=== PATIENT | male | born 1990 | race Caucasian/White ===

== ENCOUNTER 2022-12-15 03:15 | Emergency (ER) | payer BC, MEDICAID ==
[~2022-12-15] VITALS: Ht 172.7 cm; Wt 97.7 kg
[~2022-12-15 03:15] MED LIST: CYCL-1 PO; ONDA4TAB59 PO
[2022-12-15 04:10] VITALS: TEMP 98.8
[2022-12-15] MEDS ORDERED: ondansetron 4mg rapidly disintigrating tab PO STA (04:15)
[2022-12-15] MEDS ORDERED: normal saline 1000ML IV soln IVB ONE ×2 (06:20)
[2022-12-15] MEDS ORDERED: metoclopramide 5 mg/ml inj IV ONE (06:20)
[2022-12-15] MEDS ORDERED: diphenhydrAMINE 50 mg/ml inj IV ONE (06:20)
[2022-12-15 08:49] LABS: BASOPHILS % (AUTO) 0.1 % (0-1); EOSINOPHILS % (AUTO) 0.1 % (0-6); HEMATOCRIT 46.2 % (42.0-52.0); LYMPHOCYTES # (AUTO) 0.4 X10'3 (1.1-4.8); LYMPHOCYTES % (AUTO) 3.1 % (21-51); MEAN CORPUSCULAR HEMOGLOBIN 33.1 PG (27.0-31.0); MEAN CORPUSCULAR HGB CONC 34.7 g/dL (33.0-36.5); MEAN CORPUSCULAR VOLUME 95.3 FL (78-98); MEAN PLATELET VOLUME 8.2 FL (7.4-10.4); MONOCYTES # (AUTO) 0.6 X10'3 (0-0.9); MONOCYTES % (AUTO) 5.4 % (2-12); NEUTROPHILS # (AUTO) 10.5 X10'3 (1.8-7.7); NEUTROPHILS % (AUTO) 91.3 % (42-75); PLATELET COUNT 241 X10'3 (140-440); RED BLOOD COUNT 4.84 X10'6 (4.70-6.10); RED CELL DISTRIBUTION WIDTH 13.5 % (11.5-14.5); WHITE BLOOD COUNT 11.5 X10'3 (4.5-11.0)
[2022-12-15 08:53] LABS: BILIRUBIN,URINE MODERATE (Neg); CLARITY,URINE CLEAR (Clear); COLOR,URINE YELLOW (Yellow); GLUCOSE, URINE NEGATIVE (Neg); KETONES,URINE >=80 mg/dl (Neg); LEUKOCYTE ESTERASE ,URINE NEGATIVE (Neg); NITRITES, URINE POSITIVE (Neg); OCCULT BLOOD,URINE NEGATIVE (Neg); PROTEIN,URINE >=300 mg/dl (Neg)
[2022-12-15 08:59] LABS: ALANINE AMINOTRANSFERASE 116 U/L (12-78); ALBUMIN 4.3 G/DL (3.4-5.0); ALBUMIN/GLOBULIN RATIO 1.4 (1.1-1.5); ALKALINE PHOSPHATASE 83 IU/L (46-116); ANION GAP 14 (8-16); ASPARTATE AMINO TRANSFERASE 93 U/L (10-37); BILIRUBIN,TOTAL 2.5 MG/DL (0.1-1.0); BLOOD UREA NITROGEN 11 MG/DL (7-18); BUN/CREATININE RATIO 11.8 (10.0-20.0); CHLORIDE 102 MMOL/L (99-107); CREATININE 0.93 MG/DL (0.60-1.10); GLUCOSE 121 MG/DL (70-104); LIPASE < 50 U/L (73-393); POTASSIUM 3.1 MMOL/L (3.5-5.1); SODIUM 142 MMOL/L (135-145); TOTAL CARBON DIOXIDE 26.3 MMOL/L (24-32); TOTAL PROTEIN 7.3 G/DL (6.4-8.2); eCRCL 112 ML/MIN; eGFR > 90 ML/MIN
[2022-12-15 08:59] LABS: UA COLLECTION TYPE URINAL
[2022-12-15 09:00] LABS: BACTERIA,URINE FEW /HPF (Neg); MUCUS STRANDS MODERATE /LPF (Neg); RBC,URINE NONE SEEN /HPF (0-2); SQUAMOUS EPITHELIAL CELL,UR FEW /LPF (FEW)
[2022-12-15] MEDS ORDERED: ONDA4TAB12 PO (10:01)
[2022-12-15] MEDS ORDERED: CIPR-259 PO (10:01)
[2022-12-15 12:28] VITALS: BP 131/71; PULSE 113; RESP 18; O2SAT 96
[2022-12-15] MEDS ORDERED: chlordiazePOXIDE 25mg capsule PO ONE (13:20)
[2022-12-15] MEDS ORDERED: CHLO25CA10 PO (13:21)
[2022-12-16] MEDS ORDERED: CefTRIAXone 2gm/D5W 50ml BAG 50 ML IV ONE (08:00)
== END 2022-12-15 15:39 | disposition home or self-care (01) ==
LOC: ER 03:16
DX: R11.10 Vomiting, unspecified (principal); N39.0 Urinary tract infection, site not specified; F12.90 Cannabis use, unspecified, uncomplicated; Z72.89 Other problems related to lifestyle; Z79.2 Long term (current) use of antibiotics; Z79.899 Other long term (current) drug therapy
CPT/HCPCS: 36415; 80053; 81001; 83690; 85025; 87088; 96361; 96365; 96375; 99284; J0696; J1200; J2765; J7030